=== PATIENT | male | born 1975 | race Caucasian/White ===

== ENCOUNTER → 2022-01-16 | Outpatient (CLI) | payer OTHER ==
[~2022-01-16] MED LIST: BARIUM SULFATE 340 GM SUSPENSION. PO ONE; BARIUM SULFATE 60% 355 ML SUSP PO ONE; SIMETHICONE/SOD BICARB/CITRIC ACID PACKET. PO ONE
--- NOTE | 2022-01-16 08:52 | RAD ---
EXAMINATION: DG UGI W/O KUB AIR CONTRAST 01/16/2022 8:04 AM HISTORY: Chest pain and abdominal pain COMPARISON: None. TECHNIQUE: The patient swallowed effervescent crystals followed by thick and thin barium and was obse rved FINDINGS: Limited air contrast evaluation of the esophagus. No obvious mucosal abnormality in the esophagus. Th e esophagus distends normally. There is normal esophageal motility. The stomach and duodenum are norm al in morphology. No mucosal abnormality identified in the stomach. There is no hiatal hernia or low roesophageal reflux. Total fluoroscopic time:3.4 minutes. Dose:48.7 mGy. 7 fluoroscopic images and 2 cine clips were save d. IMPRESSION: Normal upper GI series. Electronically signed by: Reshma Harden MD (01/16/2022 8:50 AM) [id number]
== END ==
LOC: RAD 08:30
PROVIDERS: ATTEND Internal Medicine Gastroenterology
DX: R10.11 Right upper quadrant pain (principal); R10.13 Epigastric pain; R10.31 Right lower quadrant pain
CPT/HCPCS: 74246